=== PATIENT | male | born 1955 | race African-American/Black ===

== ENCOUNTER 2019-11-06 10:56 | Emergency (ER) | payer SELFPAY ==
[2019-11-06 11:06] VITALS: BP 142/67; PULSE 68; BMI 20.9
--- OUTSIDE RECORDS SUMMARY | 2019-11-06 11:19 | XMS ---
:1955 Author Organization [facility] Support Name Relationship Address Phone PHILL [place] [address] BASHIR BUTTS [address] [place] [address] Re-disclosure Warning The records that you are about to access may contain information from federally- assisted alcohol or drug abuse programs. If such information is present, then the following federally mandated warning applies: This information has been disclosed to you from records protected by federal confidentiality rules (42 CFR part 2). The federal rules prohibit you from making any further disclosure of this information unless further disclosure is expressly permitted by the written consent of the person to whom it pertains or as otherwise permitted by 42 CFR part 2. A general authorization for the release of medical or other information is NOT sufficient for this purpose. The Federal rules restrict any use of the information to criminally investigate or prosecute any alcohol or drug abuse patient.The records that you are about to access may contain highly sensitive health information, the redisclosure of which is protected by Article 27-F of the [facility] Public Health law. If you continue you may haveaccess to information: Regarding HIV / AIDS; Provided by facilities licensed or operated by the [facility] Office of Mental Health; or Provided by the [facility] Office for People With Developmental Disabilities. If such information is present, then the following [facility] mandated warning applies: This information has been disclosed to you from confidential records which are protected by state law. State law prohibits you from making any further disclosure of this information without the specific written consent of the person to whom it pertains, or as otherwise permitted by law. Any unauthorized further disclosure in violation of state law may result in a fine or long term sentence or both. A general authorization for the release of medical or other information is NOT sufficient authorization for further disclosure. Insurance Providers Payer name Policy type Policy ID Covered Covered constitution party's Policy P sweta / Coverage constitution party ID relationship to [employer] type [employer] SELF PAY SP INSURANCE
[2019-11-06] MEDS ORDERED: LIDOCAINE 5% TOPICAL PATCH TP ONE (11:46)
[2019-11-06] MEDS ORDERED: diazePAM 2 MG TABLET PO ONE (11:46)
[2019-11-06] MEDS ORDERED: KETOROLAC TROMETHAMINE 60 MG/2 ML VIAL IM ONE (11:46)
[2019-11-06] MEDS ORDERED: LIDOCAINE 5% TOPICAL PATCH ONE (11:50)
[2019-11-06] MEDS ORDERED: KETOROLAC TROMETHAMINE 30 MG/1 ML VIAL ONE (11:50)
[2019-11-06] MEDS ORDERED: diazePAM 2 MG TABLET ONE (11:50)
[2019-11-06 12:13] VITALS: TEMP 98.4
--- NOTE | 2019-11-06 13:31 | PDOC ---
History of Present Illness - General Chief Complaint: Pain Stated Complaint: R/ LEG PAIN Time Seen by Provider: 11/06/19 11:18 History Source: Patient Exam Limitations: No Limitations Past History - Travel History Traveled outside of the country in the last 30 days: No Close contact w/someone who was outside of country & ill: No - Medical History Allergies/Adverse Reactions: Allergies Allergy/AdvReac Type Severity Reaction Status Date / Time No Known Allergies Allergy Verified 11/06/19 11:00 Home Medications: Ambulatory Orders Diazepam [Valium] 2 mg PO HS #7 tablet MDD 1 11/06/19 Ibuprofen 600 mg PO Q6H #30 tablet 11/06/19 COPD: No - Psycho-Social/Smoking History Smoking History: Never smoked Have you smoked in the past 12 months: No - Substance Abuse Hx (Audit-C & DAST Scrn) How often the patient has a drink containing alcohol: Never Score: In Men: 4 or > Positive; In Women: 3 or > Positive: 0 Screen Result (Pos requires Nsg. Audit-10AR): Negative Review of Systems - Review of Systems Able to Perform ROS?: Yes Comments:: 11/06/19 21:07 CONSTITUTIONAL: Absent: fever, chills, diaphoresis, generalized weakness, malaise, loss of appetite GASTROINTESTINAL: Absent: abdominal pain, abdominal distension, nausea, vomiting, diarrhea, constipation, melena, hematochezia GENITOURINARY: Absent: dysuria, frequency, urgency, hesitancy, hematuria, flank pain, genital pain MUSCULOSKELETAL: Present: low back pain, Right leg pain Absent: arthralgia, joint swelling SKIN: Absent: rash, itching, pallor NEUROLOGIC: Absent: headache, focal weakness or paresthesias, dizziness, unsteady gait, seizure, mental status changes, bladder or bowel incontinence PSYCHIATRIC: Absent: anxiety, depression, suicidal or homicidal ideation, hallucinations. Is the patient limited Bengali proficient: No *Physical Exam - Vital Signs Last Vital Signs Temp Pulse Resp BP Pulse Ox 98.4 F 68 16 142/67 100 11/06/19 11:01 11/06/19 11:01 11/06/19 11:01 11/06/19 11:01 11/06/19 11:01 - Physical Exam 11/06/19 21:30 03/15/19 11:56 GENERAL: Well developed, well nourished. Awake and alert. No acute distress. NECK: Supple. Full ROM. No lymphadenopathy. MUSCULOSKELETAL R paraspinous muscles, L3-L5, with palpable knot consistent with muscle spasm. (+) straight leg raise on the R, (-) midline tenderness. Normal range of motion at all joints. No bony deformities or tenderness. No CVA tenderness. EXTREMITIES: No cyanosis. No clubbing. No edema. No calf tenderness. SKIN: Warm and dry. Normal capillary refill. No rashes. No jaundice. NEUROLOGICAL: Alert, awake, appropriate. Cranial nerves 2-12 intact. No deficits to light touch and temperature in face, upper extremities and lower extremities. No motor deficits in the in face, upper extremities and lower extremities. Normoreflexic in the upper and lower extremities. Normal speech. Toes are down-going bilaterally. Gait is normal without ataxia. PSYCHIATRIC: Cooperative. Good eye contact. Appropriate mood and affect. ED Treatment Course - RADIOLOGY Radiology Studies Ordered: Category Date Time Status SPINE-LUMBAR SACRAL [RAD] Stat Radiology 11/06/19 11:47 Completed - Medications Given in the ED: ED Medications Discontinued Medications Generic Name Dose Route Start Last Admin Trade Name Glenq PRN Reason Stop Dose Admin Diazepam 2 mg 11/06/19 11:46 11/06/19 11:58 Valium - PO 11/06/19 11:47 2 mg ONCE ONE Administration Ketorolac Tromethamine 30 mg 11/06/19 11:46 11/06/19 11:58 Toradol Injection - IM 11/06/19 11:47 30 mg ONCE ONE Administration Lidocaine 1 patch 11/06/19 11:46 11/06/19 11:58 Lidoderm Patch - TP 11/06/19 11:47 1 patch ONCE ONE Administration Medical Decision Making - Medical Decision Making 11/06/19 21:30 The patient is a 4-year-old male no past medical history presents the ER with lower back pain for 2 weeks worsening since yesterday. He states that he lifted a heavy box at work which caused the initial injury. He has tried warm compresses and gentle stretching for the pain however after working yesterday for 12 hours he states that his pain got worse. He notes that now the pain is running down his right leg and it hurts to stand. He states that yesterday he did not do heavy lifting but was just standing on his feet for prolonged periods of time. Denies numbness and tingling weakness effect extremity, bladder bowel incontinence and saddle anesthesia. A/P: Low back pain, sciatica -Pt with TTP of the R paraspinous muscles, L3-L5, with palpable knot consistent with muscle spasm. (+) straight leg raise on the R, (-) midline tenderness. -No trauma, or fever. No saddle anesthesia or bladder/bowel incontinence. No CVA tenderness. -Pt is neurologically intact on exam with no focal findings. -X-ray with straightening consistent with spasm. -Toradol given with relief of symptoms -DC home. Ortho follow up given for if symptoms do not resolve. -I discussed the physical exam findings, ancillary test results and final diagnoses with the patient. I answered all of the patient's questions. The patient was satisfied with the care received and felt comfortable with the discharge plan and treatment plan. The Patient agrees to follow up with the primary care physician/specialist within 24-72 hours. Return precautions were given. Discharge - Discharge Information Problems reviewed: Yes Clinical Impression/Diagnosis: Low back pain Qualifiers: Chronicity: acute Back pain laterality: right Sciatica presence: with sciatica Sciatica laterality: sciatica of right side Qualified Code(s): M54.41 - Lumbago with sciatica, right side Condition: Stable Disposition: HOME - Admission No - Additional Discharge Information Prescriptions: Ibuprofen 600 mg PO Q6H #30 tablet Diazepam [Valium] 2 mg PO HS #7 tablet MDD 1 - Follow up/Referral Referrals: Lon Polo DO [Staff Physician] - - Patient Discharge Instructions Patient Printed Discharge Instructions: DI for Low Back Pain Additional Instructions: You have low back pain due to a muscle spasm. Please take ibuprofen 800 mg 3 times a day not to exceed 3000 mg a day. You were also prescribed Valium. Take the medication before you go to bed. Do not drive after taking this medication as it may make you sleepy. You may use warm compresses on your back to help with her symptoms. Please follow-up with your primary care doctor. If your symptoms do not resolve in 3-5 days, follow-up with orthopedics. A referral has been provided for you. Return to the emergency department if you have worsening back pain, bladder or bowel incontinence, numbness and tingling in her legs, changes in the way you walk, or any new or worsening symptoms. - Post Discharge Activity Work/Back to School Note: Back to Work
[2019-11-06] MEDS ORDERED: LIDOCAINE PATCH REMOVAL MC SCH (22:00)
== END 2019-11-06 13:41 | disposition home or self-care (01) ==
LOC: JERFT 10:56 → JER 10:56
PROC: 3E0233Z Introduction of Anti-inflammatory into Muscle, Percutaneous Approach (ICD-10-PCS; principal; 2019-11-06)
DX: M54.41 Lumbago with sciatica, right side (principal)
CPT/HCPCS: 72100-TC-FY; 99283-25